=== PATIENT | male | born 1970 | race Caucasian/White ===

== ENCOUNTER 2021-06-22 14:19 | Inpatient (IN) | payer OTHER ==
[~2021-06-22] VITALS: Ht 190.5 cm; Wt 88.9 kg
[~2021-06-22 14:19] MED LIST: ATACAND32 MG
[2021-06-22] MEDS ORDERED: METFORMIN HCL500 M3 (14:34)
[2021-07-03] MEDS ORDERED: METFORMIN HCL500 M3 PO (12:59)
[2021-07-03] MEDS ORDERED: ULTRAM50 MG PO (12:59)
[2021-07-03] MEDS ORDERED: INTESTINEX680 M1 PO (12:59)
[2021-07-03] MEDS ORDERED: GABAPENTIN300 MG PO (12:59)
[2021-07-03] MEDS ORDERED: ATACAND HCT 321 EAC1 PO (12:59)
[2021-07-03] MEDS ORDERED: NIFEDIPINE ER60 MG PO (12:59)
== END 2021-07-03 19:50 | disposition home or self-care (01) | DRG 256 ==
LOC: ER 14:19 → EMR PED 14:24 → MEDJ 21:28 → MEDI 06-27 20:14 → MEDJ 06-28 16:48
PROVIDERS: Specialist; ADMIT Internal Medicine Geriatric Medicine; ATTEND Internal Medicine Geriatric Medicine
PROC: 02HV33Z Insertion of Infusion Device into Superior Vena Cava, Percutaneous Approach (ICD-10-PCS; 2021-06-23)
PROC: 0Y6S0Z3 Detachment at Left 2nd Toe, Low, Open Approach (ICD-10-PCS; principal; 2021-07-01 16:45)
DX: E11.52 Type 2 diabetes mellitus with diabetic peripheral angiopathy with gangrene (principal); L97.528 Non-pressure chronic ulcer of other part of left foot with other specified severity; M86.8X7 Other osteomyelitis, ankle and foot; B96.5 Pseudomonas (aeruginosa) (mallei) (pseudomallei) as the cause of diseases classified elsewhere; L08.89 Other specified local infections of the skin and subcutaneous tissue; I10 Essential (primary) hypertension; Z79.4 Long term (current) use of insulin; Z20.822 Contact with and (suspected) exposure to COVID-19

== ENCOUNTER 2022-03-26 13:10 | Emergency (ER) | payer OTHER ==
[~2022-03-26] VITALS: Ht 190.5 cm; Wt 81.6 kg
[~2022-03-26 13:10] MED LIST changes: +ATACAND HCT 321 EAC1 PO; +GABAPENTIN300 MG PO; +INTESTINEX680 M1 PO; +METFORMIN HCL500 M3; +METFORMIN HCL500 M3 PO; +NIFEDIPINE ER60 MG PO; +ULTRAM50 MG PO
[2022-03-26] MEDS ORDERED: MUPIROCIN1 G1 TOP (16:18)
== END 2022-03-26 17:07 | disposition home or self-care (01) ==
LOC: ER 13:10
DX: L03.113 Cellulitis of right upper limb (principal); S61.451A Open bite of right hand, initial encounter; Z91.013 Allergy to seafood; E11.9 Type 2 diabetes mellitus without complications; Z79.84 Long term (current) use of oral hypoglycemic drugs; I10 Essential (primary) hypertension

== ENCOUNTER 2022-10-30 09:07 | Outpatient (CLI) | payer OTHER ==
[~2022-10-30 09:07] MED LIST changes: +MUPIROCIN1 G1 TOP
== END 2022-10-30 09:10 | disposition home or self-care (01) ==
LOC: NUCLEAR 09:07
PROVIDERS: ATTEND Specialist
DX: I73.9 Peripheral vascular disease, unspecified (principal)

== ENCOUNTER 2022-10-31 08:59 | Outpatient (CLI) | payer OTHER | END 2022-10-31 09:04 | disposition home or self-care (01) | LOC: NUCLEAR 08:59 | PROVIDERS: ATTEND Specialist | DX: I87.2 Venous insufficiency (chronic) (peripheral) (principal) ==

== ENCOUNTER 2024-05-20 09:04 | Emergency (ER) | payer OTHER ==
[~2024-05-20] VITALS: Ht 190.5 cm; Wt 82.1 kg
[~2024-05-20 09:04] MED LIST changes: +GLUMETZA500 MG; +NORVASC2.5 M1; +TRICOR145 MG
[2024-05-20 12:40] LABS: HEMATOCRIT 43.2 % (39.0-48.0); HEMOGLOBIN 14.3 g/dL (13-16.00); MEAN CELL VOLUME 94.4 fL (80.0-100.00); MEAN CORPUSCULAR HEMOGLOBIN 31.3 pg (27.00-32.0); MEAN CORPUSCULAR HGB CONC 33.1 g/dl (32.0-36.0); PLATELET COUNT 209 K/uL (150-450); RED BLOOD COUNT 4.58 M/uL (4.00-6.00); RED CELL DISTRIBUTION WIDTH 12.6 % (11.5-14.5)
[2024-05-20 12:58] LABS: ERYTHROCYTE SEDIMENTATION RATE 6 mm/hr
[2024-05-20 13:23] LABS: ALBUMIN 4.3 gm/dL (3.4-5.0); ALKALINE PHOSPHATASE 44 U/L (50-136); ALT/SGPT 27 U/L (12-78); ANION GAP 4 (10.0-20.0); AST/SGOT 32 U/L (15-37); BILIRUBIN TOTAL 0.76 mg/dL (0.3-1.2); BLOOD UREA NITROGEN 22 mg/dL (7-18); BUN CREA RATIO 18 (7.0-25.0); CALCIUM 10.2 mg/dL (8.5-10.1); CARBON DIOXIDE 34 mEq/L (21-32); CHLORIDE 101 mmol/L (98-107); CREATININE SERUM 1.25 mg/dL (0.70-1.30); GFR 60.42; GLOBULINA 4.4 G/DL (2.4-3.5); GLUCOSE FASTING 150 mg/dL (65-100); OSMOLALITY SERUM 276 MOSM/KG (275-295); POTASSIUM 3.86 mEq/L (3.5-5.1); SODIUM 135 mmol/L (136-145); TOTAL PROTEIN 8.7 gm/dL (6.4-8.2)
[2024-05-20 13:24] LABS: C-REACTIVE PROTEIN < 0.29 MG/DL (0.00-0.29)
== END 2024-05-20 14:12 | disposition home or self-care (01) ==
LOC: ER 09:07
PROVIDERS: General Practice
DX: S90.32XA Contusion of left foot, initial encounter (principal); X58.XXXA Exposure to other specified factors, initial encounter; Y93.89 Activity, other specified; Y92.89 Other specified places as the place of occurrence of the external cause; Y99.8 Other external cause status; E11.9 Type 2 diabetes mellitus without complications; Z79.84 Long term (current) use of oral hypoglycemic drugs; Z91.013 Allergy to seafood

== ENCOUNTER 2024-05-24 14:49 | Outpatient (CLI) | payer OTHER | END 2024-05-24 15:00 | disposition home or self-care (01) | LOC: SONOGRAMA 14:49 | PROVIDERS: ATTEND Specialist | DX: D37.030 Neoplasm of uncertain behavior of the parotid salivary glands (principal) ==